=== PATIENT | female | born 1975 | race Caucasian/White ===

== ENCOUNTER 2017-09-30 16:16 | Emergency (ER) | payer OTHER ==
[~2017-09-30] VITALS: Ht 185.4 cm; Wt 99.4 kg
[~2017-09-30 16:16] MED LIST: ADVAIR 250/501 DISK IH; ADVIL PM CAPLE1 EAC1 PO; AMPHETAMINE SAL30 MG PO; BACTRIM,SEPT1 TABLET PO; FLEXERIL10 MG; FLEXERIL10 MG PO; IBUPROFEN800 MG PO; KEFLEX500 MG PO; METHADOSE40 MG PO; MORPHINE SULFAT15 M3 PO; NYQUIL D COLD295 ML PO; PERCOCET 5/31 TABLET PO; PREVACID15 M2 PO; PREVACID30 MG PO; PRILOSEC40 MG PO; PROTONIX40 MG PO; PROZAC40 MG PO; RANITIDINE HCL150 M1 PO; REGLAN10 MG PO; REGLAN5 MG PO; SUCRALFATE1 GM PO; TRAMADOL HCL50 MG PO; ULTRAM50 MG; ULTRAM50 MG PO; ZANTAC15 MG/ML; ZANTAC150 MG
[2017-09-30 20:24] LABS: HEMATOCRIT 36.4 % (36.0-46.0); HEMOGLOBIN 11.9 G/DL (11.9-15.5); MCH 29.2 PG (29.0-34.0); MCHC 32.7 G/DL (30.0-36.0); MCV 89.2 FL (83-99); PLATELET COUNT 182 K/uL (156-360); RBC DIS.WIDTH-CV 12.5 % (11.8-14.6); RBC DIS.WIDTH-SD 40.7 % (39-53); RED BLOOD COUNT 4.08 M/uL (3.80-5.20)
[2017-09-30 20:32] LABS: CHLORIDE 106 mEq/L (99-109); PTT 27.8 SEC (25-37); SODIUM 139 mEq/L (136-147)
[2017-09-30 20:34] LABS: GLUCOSE 73 mg/dL (70-99)
[2017-09-30 20:38] LABS: CREATININE 0.6 mg/dL (0.6-1.3); GFR ESTIMATE (CALCULATED) > 59 mL/min/
[2017-09-30 20:39] LABS: UREA NITROGEN (BUN) 4 mg/dL (9-23)
[2017-09-30] MEDS ORDERED: LOVENOX150 MG/1 M SC (21:26)
[2017-09-30 22:19] VITALS: BP 129/56
== END 2017-09-30 22:19 | disposition home or self-care (01) ==
LOC: EME 16:16
PROVIDERS: Emergency Medicine
DX: I82.491 Acute embolism and thrombosis of other specified deep vein of right lower extremity (principal); F17.200 Nicotine dependence, unspecified, uncomplicated; Z71.6 Tobacco abuse counseling; Z98.84 Bariatric surgery status
CPT/HCPCS: 80048; 85027; 85610; 85730; 99281; 99284; J1650